=== PATIENT | female | born 1995 | race Caucasian/White ===

== ENCOUNTER 2018-01-15 13:23 | Emergency (ER) | payer OTHER, SELFPAY ==
[2018-01-15 13:26] VITALS: BP 136/85; PULSE 90; RESP 20; TEMP 36.2; O2SAT 97
--- NOTE | 2018-01-15 13:28 | ED.HEATRA ---
HPI - Head Injury <KASHIF Reyes - Last Filed: 01/15/18 22:33> General Chief complaint: Headache Stated complaint: POSSIBLE CONCUSSION Time Seen by Provider: 01/15/18 13:28 History of Present Illness HPI Narrative: Healthy 22-year-old female here for complaint of headache since yesterday. She states that she was accidentally hit in the front of the scalp by a heavy flag as she is a flag poorly for a drill team. She states that she has had a headache since this timeframe with nausea. She denies any loss of consciousness. She states that she feels like she has been in a ?fog? she states that she feels like she is having difficulty forming sentences she reports that the headache has not improved. She denies any other injuries. She is able to ambulate into the emergency room. She denies any neck pain. MD Complaint: head injury Review of Systems <KASHIF Reyes - Last Filed: 01/15/18 22:33> Review of Systems All systems reviewed & are unremarkable except as noted in HPI and below Constitutional Denies chills, Denies fever(s), Denies lethargy and Denies weakness Eyes Denies change in vision, Denies eye discharge, Denies irritation and Denies loss of vision ENT Ears, Nose, Mouth, and Throat: Denies change in voice, Denies neck pain and Denies sore throat Cardiovascular Denies chest pain, Denies irregular heart rhythm, Denies lightheadedness, Denies palpitations, Denies dyspnea, Denies dyspnea on exertion and Denies orthopnea Respiratory Denies cough, Denies dyspnea, Denies dyspnea on exertion and Denies wheezing Gastrointestinal Gastrointestinal: Reports nausea Genitourinary Denies hematuria, Denies flank pain, Denies urinary incontinence and Denies urinary urgency Musculoskeletal Denies neck pain Integumentary/Breasts Denies pruritus, Denies erythema, Denies rash and Denies wounds Neurologic Denies confusion, Denies loss of vision and Denies weakness Comments: Head injury with headache Psychiatric Denies anxiety, Denies confusion, Denies depression, Denies homicidal ideation and Denies suicidal ideation Endocrine Denies palpitations Allergic/Immunologic Denies wheezing Exam <KASHIF Reyes - Last Filed: 01/15/18 22:33> Initial Vital Signs Initial Vital Signs: Vital Signs Temperature 97.2 F L 01/15/18 13:26 Pulse Rate 90 01/15/18 13:26 Respiratory Rate 20 01/15/18 13:26 Blood Pressure 136/85 H 01/15/18 13:26 Pulse Oximetry 97 01/15/18 13:26 Const General: cooperative and well developed Nutritional Appearance: well nourished Orientation: alert, awake, oriented x3 and not confused [facility] Mouth: oral mucosae normal and moist mucous membranes Eyes Conjunctivae: conjunctivae normal Sclera: sclerae normal Pupils: PERRL EOM: EOM intact bilaterally Neck Neck: normal visual inspection, trachea midline, No lymphadenopathy, No midline deformity and No JVD Lymphatic: No lymphedema Resp Effort & Inspection: normal respiratory effort, able to speak in complete sentences, no respiratory distress and no use of accessory muscles Auscultation: clear to auscultation bilaterally, no rales, no rhonchi and no wheezes Cardio Rate: regular rate Rhythm: regular rhythm Heart Sounds: no click, no gallops, no murmurs and no rubs Skin General: no rashes or lesions noted, No jaundice and No petechiae Neuro Cranial Nerves: PERRL, accommodation normal, EOM intact bilaterally, facial strength normal and tongue midline Cognition: normal cognition Speech: speech normal Gait: normal gait Motor: muscle tone normal throughout Sensory Exam: no sensory deficits noted <DO Norbert Medel Filed: 01/22/18 07:13> Initial Vital Signs Initial Vital Signs: Vital Signs Temperature 97.2 F L 01/15/18 13:26 Pulse Rate 90 01/15/18 13:26 Respiratory Rate 20 01/15/18 13:26 Blood Pressure 136/85 H 01/15/18 13:26 Pulse Oximetry 97 01/15/18 13:26 Course <KASHIF Reyes - Last Filed: 01/15/18 22:33> Orders Ordered: ED Orders 01/15/18 13:58 CT head/brain wo con Stat Vital Signs - 8 hr 01/15/18 14:38 01/15/18 14:46 Pulse Rate 78 89 Respiratory Rate 16 Blood Pressure 141/78 H Blood Pressure [Right Arm] 141/78 H Pulse Oximetry 99 <DO Norbert Medel Filed: 01/22/18 07:13> Orders Ordered: ED Orders 01/15/18 13:58 CT head/brain wo con Stat Vital Signs - 8 hr 01/15/18 14:38 01/15/18 14:46 Pulse Rate 78 89 Respiratory Rate 16 Blood Pressure 141/78 H Blood Pressure [Right Arm] 141/78 H Pulse Oximetry [address] [facility] - Head Injury <KASHIF Reyes - Last Filed: 01/15/18 22:33> Imaging Data CT scan - head: Radiologist's impression: PROCEDURE: CT HEAD/BRAIN WO CON INDICATIONS: Frontal head injury yesterday with headache TECHNIQUE: Noncontrast 4.5 mm thick angled axial sections acquired from the foramen magnum to the vertex, with coronal and sagittal reformats. For radiation dose reduction, the following was used: automated exposure control, adjustment of mA and/or kV according to patient size. COMPARISON: None. FINDINGS: Image quality: Excellent. CSF spaces: Basal cisterns are patent. No extra-axial fluid collections. Ventricles are normal in size and shape. Brain: No midline shift. No intracranial masses or hemorrhage. Buchanan-white matter interface is normal. Skull and face: Calvarium and visualized facial bones are intact, without suspicious lesions. Sinuses: Visualized sinuses and mastoids are clear. IMPRESSION: Negative head CT exam. Dictated by: Kim Rice M.D. on 01/15/2018 at 14:07 Approved by: Kim Rice M.D. on 01/15/2018 at 14:[address] [facility] Narrative Medical decision making narrative: CT of the head was obtained due to headache that has been constant since time of injury. CT was negative for any acute findings. Signs and symptoms presents as minor closed head injury. Patient is provided with minor head injury instructions with warning signs to return to the emergency room. [id number] Tylenol Motrin as needed for any discomfort. Obtain a medical clearance prior to return to sports participation. For any worsening symptoms return to the emergency room. Follow up with primary care provider. Discharge Plan Departure Patient Disposition: Home, Self-Care Clinical Impression: Minor head injury without loss of consciousness Discharge Date/Time: 01/15/18 14:49 Interventions: ED Discharge Assessment Last Done: 01/15/18 14:46 Instructions: DI for Closed Head Injury Activity Restrictions/Additional Instructions: CT of the head was obtained and was negative for any acute findings. Signs and symptoms presents as minor closed head injury. Minor head injury instructions is provided with warning signs to return to the emergency room. [id number] Tylenol Motrin as needed for any discomfort. Obtain a medical clearance prior to return to sports participation. For any worsening symptoms return to the emergency room. Follow up with primary care provider. Referrals: [facility] [Provider Group] <Carlos Grande DO - Last Filed: 01/22/18 07:13> Cosign ED Attending Darin Attestation: I was available for consultation during this patient's emergency department encounter
--- NOTE | 2018-01-15 13:58 | DI.CT.S_ITS ---
PROCEDURE: CT HEAD/BRAIN WO CON INDICATIONS: Frontal head injury yesterday with headache TECHNIQUE: Noncontrast 4.5 mm thick angled axial sections acquired from the foramen magnum to the vertex, with coronal and sagittal reformats. For radiation dose reduction, the following was used: automated exposure control, adjustment of mA and/or kV according to patient size. COMPARISON: None. FINDINGS: Image quality: Excellent. CSF spaces: Basal cisterns are patent. No extra-axial fluid collections. Ventricles are normal in size and shape. Brain: No midline shift. No intracranial masses or hemorrhage. Buchanan-white matter interface is normal. Skull and face: Calvarium and visualized facial bones are intact, without suspicious lesions. Sinuses: Visualized sinuses and mastoids are clear. IMPRESSION: Negative head CT exam. Dictated by: Kim Rice M.D. on 01/15/2018 at 14:07 Approved by: Kim Rice M.D. on 01/15/2018 at 14:09
[2018-01-15 14:38] VITALS: BP 141/78; PULSE 78
[2018-01-15 14:46] VITALS: BP 141/78; PULSE 89; RESP 16; O2SAT 99
== END 2018-01-15 14:49 | disposition home or self-care (01) ==
PROVIDERS: Emergency Provider Nurse Practitioner Family
DX: S09.90XA Unspecified injury of head, initial encounter (principal); W20.8XXA Other cause of strike by thrown, projected or falling object, initial encounter
CPT/HCPCS: 70450; 99283; 99284